=== PATIENT | female | born 1950 | race Caucasian/White ===

== ENCOUNTER 2017-10-19 09:18 | Emergency (ER) | payer MEDICARE, BC ==
[~2017-10-19] VITALS: Ht 167.6 cm; Wt 79.1 kg
[~2017-10-19 09:18] MED LIST: BETAPACE 120MG120 MG PO; BETAPACE 80MG80 MG PO; BUDEPRION XL150 MG PO; CALCIUM1 CAP PO; CARDIZEM120 MG PO; CATAPRES-TTS 20.2 M1 TD; CELEBREX 200MG200 MG PO; CITRACAL + D CA1 TAB; EFFEXOR XR75 MG/CAP PO; ELIQUIS 5MG PO; LIPITOR 10MG10 MG PO; LOPRESSOR 225 MG/TAB PO; MAGNESIUM CITR100 MG PO; MULTAQ400 MG PO; MULTI VITAMINS1 TAB PO; NORCO 325 MG-51 TAB PO; NORVASC 5MG5 MG/TAB PO; PEPCID 20MG TAB20 MG PO; PRADAXA75 MG PO; PREPH TOP; PRILOSEC 20MG20 MG PO; PRINIVIL40 MG PO; PROLIA60 MG/ML SQ; PYRIDIUM200 M1 PO; ULTRAM 50MG TAB50 MG PO; VITAMIN D 400400 IU PO; ZOLOFT 100MG100 MG PO
[2017-10-19 09:22] VITALS: TEMP 98.1
[2017-10-19 09:55] LABS: BASO % 0.8 % (0.0-2.0); EOS # 0.3 (0.0-0.7); EOS % 5.2 % (0-4.0); GRAN % 58.5 % (42.2-75.2); HEMATOCRIT 41.7 % (37.0-47.0); HEMOGLOBIN 13.4 g/dl (12.5-16.0); LYMPH # 1.4 (1.2-3.4); LYMPH % 26.6 % (20.0-51.0); MEAN CELL VOLUME 87 fl (80.0-100.0); MEAN CORPUSCULAR HEMOGLOBIN 28 pg (27.0-31.0); MEAN CORPUSCULAR HGB CONC 32 g/dl (33.0-37.0); MONO # 0.5 (0.1-0.6); MONO % 8.7 % (1.7-9.3); PLATELET COUNT 303 K/mm3 (130-400); REDCELL DISTRIBUTION WIDTH-CV 13.7 % (11.5-14.5)
[2017-10-19 10:02] LABS: ALANINE AMINOTRANSFERASE 46 U/L (9-52); ALBUMIN 3.7 gm/dL (3.5-5.0); ALKALINE PHOSPHATASE 97 U/L (50-136); ANION GAP 12 mmol/L (7-16); AST,SGOT 40 U/L (15-37); BILIRUBIN,TOTAL 0.4 mg/dL (0.0-1.0); BLOOD UREA NITROGEN 17 mg/dL (7-17); CALCIUM 9.2 mg/dL (8.4-10.2); CARBON DIOXIDE 20 mmol/L (22-30); CHLORIDE 109 mmol/L (98-107); CREATININE, serum 0.95 mg/dL (0.52-1.25); GLUCOSE 104 mg/dL (74-106); LIPASE 275 U/L (23-300); POTASSIUM 3.8 mmol/L (3.4-5.0); SODIUM 141 mmol/L (137-145); TOTAL PROTEIN 6.6 gm/dL (6.4-8.2)
[2017-10-19 10:14] LABS: TROPONIN-I < 0.012 ng/mL (0.000-0.034)
[2017-10-19] MEDS ORDERED: BETAPACE 80MG80 MG PO (11:27)
[2017-10-19 11:46] VITALS: BP 108/58; PULSE 68
== END 2017-10-19 11:47 | disposition home or self-care (01) ==
LOC: COL.ER 09:18
PROVIDERS: Emergency Medicine
DX: R00.2 Palpitations (principal); I10 Essential (primary) hypertension; Z90.710 Acquired absence of both cervix and uterus; Z87.891 Personal history of nicotine dependence; Z88.0 Allergy status to penicillin
CPT/HCPCS: J7030

== ENCOUNTER → 2018-02-16 | Outpatient (CLI) | payer MEDICARE, BC | LOC: MC.RAD 10:53 | DX: Z12.31 Encounter for screening mammogram for malignant neoplasm of breast (principal) ==

== ENCOUNTER → 2019-05-07 | Outpatient (CLI) | payer MEDICARE, BC ==
[~2019-05-07] MED LIST changes: +BACITRACIN TOPIC1 TU TOP; +LASIX 40MG TABL40 MG PO; +LYRICA 100MG C100 M1 PO; +PREDNISONE20 MG PO
== END ==
LOC: MC.RAD 16:35
DX: Z12.31 Encounter for screening mammogram for malignant neoplasm of breast (principal); Z95.0 Presence of cardiac pacemaker

== ENCOUNTER → 2020-07-30 | Outpatient (CLI) | payer MEDICARE, BC | LOC: ZCOL.LAB 11:58 | DX: Z01.812 Encounter for preprocedural laboratory examination (principal); Z20.822 Contact with and (suspected) exposure to COVID-19 ==

== ENCOUNTER 2021-03-22 19:27 | Emergency (ER) | payer MEDICARE, BC ==
[~2021-03-22] VITALS: Ht 167.6 cm; Wt 74.5 kg
[2021-03-22 19:32] VITALS: TEMP 98.3
[2021-03-22 20:49] LABS: BASO # 0.1 (0.0-0.2); BASO % 1.1 % (0.0-2.0); EOS # 0.3 (0.0-0.7); EOS % 5.1 % (0-4.0); GRAN # 3.7 (1.4-6.5); GRAN % 66.4 % (42.2-75.2); HEMATOCRIT 40.7 % (37.0-47.0); HEMOGLOBIN 13.5 g/dl (12.5-16.0); LYMPH % 17.6 % (20.0-51.0); MEAN CELL VOLUME 96 fl (80.0-100.0); MEAN CORPUSCULAR HEMOGLOBIN 32 pg (27.0-31.0); MEAN CORPUSCULAR HGB CONC 33 g/dl (33.0-37.0); MEAN PLATELET VOLUME 9.1 fl (7.4-10.4); MONO # 0.5 (0.1-0.6); MONO % 9.6 % (1.7-9.3); PLATELET COUNT 199 K/mm3 (130-400); RED BLOOD COUNT 4.24 M/mm3 (4.10-5.30); REDCELL DISTRIBUTION WIDTH-CV 12.5 % (11.5-14.5)
[2021-03-22 21:10] LABS: ALBUMIN 3.8 gm/dL (3.4-4.8); BILIRUBIN,TOTAL 0.5 mg/dL (0.2-1.2); C-REACTIVE PROTEIN 0.1 mg/dL (0.00-0.50); CALCIUM 8.4 mg/dL (8.4-10.2); CREATININE, serum 0.97 mg/dL (0.57-1.11); POTASSIUM 3.6 mmol/L (3.5-4.5); TOTAL PROTEIN 6.5 gm/dL (6.2-8.1)
[2021-03-22 21:55] LABS: COLLECTION METHOD CLEAN CATCH
[2021-03-22 22:00] LABS: PH 6 (5-8); SQUAMOUS EPITHELIAL 0-2 /hpf; URINE APPEARANCE Clear; URINE BACTERIA None Seen /hpf; URINE BILIRUBIN Negative (NEGATIVE); URINE BLOOD 1+ (NEGATIVE); URINE COLOR Straw; URINE GLUCOSE Negative (NEGATIVE); URINE KETONE Negative (NEGATIVE); URINE LEUKOCYTE ESTERASE Negative (NEGATIVE); URINE NITRATE Negative (NEGATIVE); URINE PROTEIN(semi-quant) Negative (NEGATIVE); URINE RBC None Seen /hpf; URINE UROBILINOGEN Negative (NEGATIVE)
[2021-03-22 23:17] VITALS: BP 140/78; PULSE 77
== END 2021-03-22 23:17 | disposition home or self-care (01) ==
LOC: COL.ER 19:27
PROVIDERS: Nurse Practitioner
DX: K59.00 Constipation, unspecified (principal); R33.9 Retention of urine, unspecified; R10.30 Lower abdominal pain, unspecified; I10 Essential (primary) hypertension; Z90.710 Acquired absence of both cervix and uterus; Z98.84 Bariatric surgery status; Z79.899 Other long term (current) drug therapy
CPT/HCPCS: A4314; J2405; J7030; Q9967

== ENCOUNTER → 2021-08-09 | Outpatient (CLI) | payer MEDICARE, BC | LOC: MC.RAD 14:30 | DX: Z12.31 Encounter for screening mammogram for malignant neoplasm of breast (principal) ==

== ENCOUNTER 2021-11-25 08:39 | Emergency (ER) | payer MEDICARE, BC ==
[~2021-11-25] VITALS: Ht 167.6 cm; Wt 79.1 kg
[2021-11-25 09:00] VITALS: TEMP 98.4
[2021-11-25 11:28] LABS: BASO # 0.1 K/mm3 (0.0-0.2); BASO % 0.6 % (0.0-2.0); EOS # 0.2 K/mm3 (0.0-0.7); EOS % 2.2 % (0.0-4.0); GRAN # 8.3 K/mm3 (1.4-6.5); GRAN % 80.8 % (42.2-75.2); HEMATOCRIT 37.3 % (37.0-47.0); HEMOGLOBIN 12.4 g/dl (12.5-16.0); LYMPH # 0.8 K/mm3 (1.2-3.4); LYMPH % 7.5 % (20.0-51.0); MEAN CELL VOLUME 100 fl (80.0-100.0); MEAN CORPUSCULAR HEMOGLOBIN 33 pg (27-31); MEAN CORPUSCULAR HGB CONC 33 g/dl (33.0-37.0); MEAN PLATELET VOLUME 9.5 fl (7.4-10.4); MONO # 0.9 K/mm3 (0.1-0.6); MONO % 8.5 % (1.7-9.3); PLATELET COUNT 173 K/mm3 (130-400); RED BLOOD COUNT 3.74 M/mm3 (4.10-5.30); REDCELL DISTRIBUTION WIDTH-CV 12.6 % (11.5-14.5)
[2021-11-25 11:34] LABS: PROTHROMBIN TIME 11.6 SECONDS (9.7-12.8)
[2021-11-25] MEDS ORDERED: ASPIRIN 81M81 MG/TA2 PO (11:40)
[2021-11-25] MEDS ORDERED: LASIX 20MG TABL20 MG PO (11:40)
[2021-11-25] MEDS ORDERED: TOPROL XL100 MG PO (11:42)
[2021-11-25 11:44] LABS: ALBUMIN 3.5 gm/dL (3.4-4.8); CALCIUM 9.9 mg/dL (8.4-10.2); CREATININE, serum 0.9 mg/dL (0.57-1.11); POTASSIUM 3.7 mmol/L (3.5-4.5); TOTAL PROTEIN 6.4 gm/dL (6.2-8.1)
[2021-11-25 12:01] LABS: BILIRUBIN,TOTAL 1.3 mg/dL (0.2-1.2)
[2021-11-25 14:10] VITALS: BP 134/68; PULSE 67
== END 2021-11-25 14:10 | disposition home or self-care (01) ==
LOC: COL.ER 08:39
PROVIDERS: Personal Emergency Response Attendant
DX: K22.2 Esophageal obstruction (principal); Z87.891 Personal history of nicotine dependence
CPT/HCPCS: C1726; J0330; J2704; J7030

== ENCOUNTER 2021-12-24 08:51 | Day surgery (SDC) | payer MEDICARE, BC ==
[~2021-12-24] VITALS: Ht 167.6 cm; Wt 77.9 kg
[~2021-12-24 08:51] MED LIST changes: +ASPIRIN 81M81 MG/TA2 PO; +LASIX 20MG TABL20 MG PO; +TOPROL XL100 MG PO
[2021-12-24 09:57] VITALS: BP 123/75; PULSE 60; TEMP 98.9
[2021-12-24 10:45] VITALS: BP 105/64; PULSE 60; TEMP 97
[2021-12-24 11:00] VITALS: BP 114/66; PULSE 59
[2021-12-24 11:15] VITALS: BP 114/52; PULSE 60
--- NOTE | 2021-12-24 11:32 | NUR ---
1045 - PT arrives and was settled by Destiny PEREZ. Written report obtained. PT provided with toast and ice water per request. PT oriented to room and call edouard, within reach. PT denies nausea and pain. 1100 - VSS. is speaking with the PT. Call edouard remains within reach. 1115 - VSS. IV discontinued. Catheter tip intact. Pressure bandage applied. NO redness or swelling noted. DC instructions and educational material reveiwed with the PT who verbalized understanding and signed the realted paperwork. 1130 - PT dismsised from endo via wheelchair to the PT entrence by a Tech. PT has DC packet and personal belongings and was transferred into the care of a friend, who is present to drive private car.
== END 2021-12-24 11:30 | disposition home or self-care (01) ==
LOC: SDCO 08:51
DX: K22.2 Esophageal obstruction (principal); R13.19 Other dysphagia; Z98.84 Bariatric surgery status; Z95.0 Presence of cardiac pacemaker
CPT/HCPCS: C1726; J2704; J7030

== ENCOUNTER 2024-03-28 09:41 | Emergency (ER) | payer MEDICARE, BC ==
[~2024-03-28] VITALS: Ht 167.6 cm; Wt 77.3 kg
[2024-03-28 09:46] VITALS: TEMP 98.2
[2024-03-28] MEDS ORDERED: NS 1,000 ML IV ONE (10:15)
[2024-03-28 13:00] VITALS: BP 150/72; PULSE 62
== END 2024-03-28 13:00 | disposition home or self-care (01) ==
LOC: COL.ER 09:41
DX: Q39.3 Congenital stenosis and stricture of esophagus (principal)
CPT/HCPCS: J7030